=== PATIENT | female | born 1965 | race Hispanic/Latino ===

== ENCOUNTER 2019-09-13 06:11 | Day surgery (SDC) | payer BC ==
[~2019-09-13] VITALS: Ht 147.3 cm; Wt 65.3 kg
[~2019-09-13 06:11] MED LIST: SODIUM CHLORIDE 0.9% 1000ML 1,000 ML IV ONE
[2019-09-13] MEDS ORDERED: PRAV20TA4 PO (07:22)
[2019-09-13] MEDS ORDERED: PIOG30TA70 PO (07:22)
[2019-09-13] MEDS ORDERED: METF-446 PO (07:22)
[2019-09-13] MEDS ORDERED: NAPROXEN PO (07:22)
[2019-09-13 07:34] VITALS: BP 115/66
[2019-09-13] MEDS ORDERED: PROPOFOL 10 MG/ML 20ML VIAL IV ONE ×2 (09:03→09:04)
[2019-09-13 09:19] VITALS: BP 139/97
[2019-09-13 09:24] VITALS: BP 88/46
[2019-09-13 09:28] VITALS: BP 95/54
[2019-09-13 09:33] VITALS: BP 100/60
== END 2019-09-13 09:45 | disposition home or self-care (01) ==
LOC: DAH 06:11 → ENDO 06:11
PROVIDERS: ATTEND Internal Medicine
DX: R14.0 Abdominal distension (gaseous) (principal); K64.0 First degree hemorrhoids; K57.30 Diverticulosis of large intestine without perforation or abscess without bleeding; E78.5 Hyperlipidemia, unspecified; E11.9 Type 2 diabetes mellitus without complications; I10 Essential (primary) hypertension; Z87.891 Personal history of nicotine dependence; Z79.84 Long term (current) use of oral hypoglycemic drugs; Z79.899 Other long term (current) drug therapy; Z82.49 Family history of ischemic heart disease and other diseases of the circulatory system; Z83.3 Family history of diabetes mellitus; Z82.3 Family history of stroke
CPT/HCPCS: 45378; 82948 ×2; A4215; A4221; A4222; A4223; A4606; A4615; A4663; J2704 ×2; J7030

== ENCOUNTER → 2021-06-25 | Outpatient (CLI) | payer BC ==
[~2021-06-25] MED LIST changes: +GADOTERATE MEGLUMINE 10 MMOL/20 ML VIAL IV ONE; +METF-446 PO; +NAPROXEN PO; +PIOG30TA70 PO; +PRAV20TA4 PO; -SODIUM CHLORIDE 0.9% 1000ML 1,000 ML IV ONE
== END | disposition home or self-care (01) ==
LOC: RAH 07:22
PROVIDERS: ATTEND Chiropractor
DX: M51.17 Intervertebral disc disorders with radiculopathy, lumbosacral region (principal); M48.07 Spinal stenosis, lumbosacral region
CPT/HCPCS: 72158; A9575